=== PATIENT | male | born 1955 | race Caucasian/White ===

== ENCOUNTER → 2017-02-11 | Outpatient (CLI) | payer BC ==
[~2017-02-11] MED LIST: IOPAMIDOL (ISOVUE-300) 100 ML BTL ONE
== END ==
LOC: FIMAGING 10:15
PROVIDERS: ATTEND Internal Medicine
DX: D44.12 Neoplasm of uncertain behavior of left adrenal gland (principal); N20.0 Calculus of kidney
CPT/HCPCS: Q9967

== ENCOUNTER 2017-03-13 23:48 | Emergency (ER) | payer BC ==
[2017-03-14] MEDS ORDERED: NS 1,000 ML IV ONE (00:02)
--- NOTE | 2017-03-14 00:02 | EDPHY ---
H & P Stated Complaint: LLQ abd pain x3 hours HPI/ROS: HPI CHIEF COMPLAINT: Left lower quadrant abdominal pain. HISTORY OF PRESENT ILLNESS: This patient very pleasant 61-year-old male, history of pulmonary embolism on Eliquis he presents emergency room with left lower quadrant abdominal pain. Patient reports to me that this started approximately 3-4 hours ago. He did notice some left lower quadrant abdominal pain earlier in the day. He has had associated nausea. Denies chills fever chest pain or shortness of breath. Pain is located left lower quadrant. Worse over the last 3 hours. No diarrhea. No chest pain no pleuritic pain no shortness of breath. No fever. Past Medical History: Pulmonary embolism on Eliquis Past Surgical History: No abdominal surgery Social History: Denies daily use of drugs alcohol tobacco. Family History: Noncontributory ROS REVIEW OF SYSTEMS: A comprehensive 10 point review of systems is otherwise negative aside from elements mentioned in the history of present illness. Exam Constitutional appears well nontoxic, triage nursing summary reviewed, vital signs reviewed, awake/alert. Eyes normal conjunctivae and sclera, EOMI, PERRLA. HENT normal inspection, atraumatic, moist mucus membranes, no epistaxis, neck supple/ no meningismus, no raccoon eyes. Respiratory clear to auscultation bilaterally, normal breath sounds, no respiratory distress, no wheezing. Cardiovascular rate normal, regular rhythm, no murmur, no edema, distal pulses normal. Gastrointestinal soft, tender palpation left lower quadrant, , no rebound, no guarding, normal bowel sounds, no distension, no pulsatile mass. Genitourinary no CVA tenderness. Musculoskeletal no midline vertebral tenderness, full range of motion, no calf swelling, no tenderness of extremities, no meningismus, good pulses, neurovascularly intact. Skin pink, warm, & dry, no rash, skin atraumatic. Neurologic awake, alert and oriented x 3, AAOx3, moves all 4 extremities equally, motor intact, sensory intact, CN II-XII intact, normal cerebellar, normal vision, normal speech. Psychiatric normal mood/affect. Heme/Lymph/Immune no lymphadenopathy. Differential diagnosis includes but is not limited to and in no particular order : Bowel obstruction, appendicitis, gallbladder disease, diverticulitis, colitis , enteritis, perforated viscus, gastritis, GERD, esophagitis, urinary tract infection, pyelonephritis, kidney stones Medical Decision Making: IV establishment, blood draw, IV fluid bolus, CT scan abdomen pelvis with IV contrast rule out acute diverticulitis. Colitis. Re-evaluation: CT scan of the abdomen pelvis with IV contrast. The results of the study are this shows a left-sided UPJ stone 5 mm. Moderate hydronephrosis. The study was read by Dr. Isidro I viewed the images myself on the PACS system. 0138: Discussed results of CT scan with patient. He understands he has a kidney stone proximal ureter 5 mm. Recommend close follow-up with urology. Urine strainer. [place] for acute pain control. Flomax. Understands drink lots of fluids. Return precautions given he understands return emergency room if develops worsening abdominal pain fever vomiting. Urinary symptoms. Source: Patient - Personal History Current Tetanus/Diphtheria Vaccine: Unsure Current Tetanus Diphtheria and Acellular Pertussis (TDAP): Unsure - Medical/Surgical History Hx Asthma: No Hx Chronic Respiratory Disease: No Hx Diabetes: No Hx Cardiac Disease: No Hx Renal Disease: No Hx Cirrhosis: No Hx Alcoholism: No Hx HIV/AIDS: No Hx Splenectomy or Spleen Trauma: No Other PMH: HTN, NICKI, hx of PE, - Social History Smoking Status: Never smoked Constitutional: Initial Vital Signs Temperature (C) 36.7 C 03/13/17 23:50 Heart Rate 65 03/13/17 23:50 Respiratory Rate 16 03/13/17 23:50 Blood Pressure 155/76 H 03/13/17 23:50 O2 Sat (%) 95 03/13/17 23:50 O2 Delivery Mode Room Air Allergies/Adverse Reactions: Sulfa (Sulfonamide Antibiotics) Allergy (Verified 03/13/17 23:54) Rash Home Medications: Medication Instructions Recorded Ibuprofen [Advil] 200 mg PO PRN PRN 04/04/16 Losartan Potassium [Cozaar] 100 mg PO DAILY 04/04/16 amLODIPine BESYLATE [Norvasc 10 mg 10 mg PO DAILY 04/04/16 (*)] Apixaban [Eliquis] 10 mg PO BID #70 tab 04/08/16 Metoprolol Tartrate 03/13/17 Hydrocodone/APAP 5/325 [[place] 1 - 2 tab PO Q4H PRN #10 tab 03/14/17 5/325] Tamsulosin HCl [Flomax] 0.4 mg PO DAILY #10 cap 03/14/17 Medical Decision Making - Data Points Laboratory Results: Laboratory Results 03/14/17 00:15 03/14/17 00:15 03/14/17 03/14/17 03/14/17 00:49 00:15 00:15 WBC RBC Hgb Hct MCV MCH MCHC RDW Plt Count MPV Neut % (Auto) Lymph % (Auto) [place] % (Auto) Eos % (Auto) Baso % (Auto) Nucleat RBC Rel Count Absolute Neuts (auto) Absolute Lymphs (auto) Absolute Monos (auto) Absolute Eos (auto) Absolute Basos (auto) Absolute Nucleated RBC Immature Gran % Immature Gran # PT 15.9 SEC H SEC (12.0-15.0) INR 1.27 H (0.83-1.16) APTT 29.7 SEC SEC (23.0-38.0) VBG Lactic Acid Sodium 140 mEq/L mEq/L (134-144) Potassium 4.8 mEq/L mEq/L (3.5-5.2) Chloride 103 mEq/L mEq/L (97-110) Carbon Dioxide 25 mEq/l mEq/l (22-31) Anion Gap 12 mEq/L mEq/L (8-16) BUN 25 mg/dL H mg/dL (7-23) Creatinine 1.0 mg/dL mg/dL (0.7-1.3) Estimated GFR > 60 Glucose 107 mg/dL H mg/dL (70-100) Calcium 10.5 mg/dL H mg/dL (8.5-10.4) Total Bilirubin 0.7 mg/dL mg/dL (0.1-1.4) Conjugated Bilirubin 0.2 mg/dL mg/dL (0.0-0.5) Unconjugated Bilirubin 0.5 mg/dL mg/dL (0.0-1.1) AST 31 IU/L IU/L (17-59) ALT 53 IU/L IU/L (21-72) Alkaline Phosphatase 65 IU/L IU/L (38-126) Total Protein 7.1 g/dL g/dL (6.3-8.2) Albumin 4.1 g/dL g/dL (3.5-5.0) Lipase 54 IU/L IU/L (23-300) Urine Color YELLOW Urine Appearance CLEAR Urine pH 6.0 (5.0-7.5) Ur Specific [place] 1.014 (1.002-1.030) Urine Protein NEGATIVE (NEGATIVE) Urine Ketones NEGATIVE (NEGATIVE) Urine Blood 3+ H (NEGATIVE) Urine Nitrate NEGATIVE (NEGATIVE) Urine Bilirubin NEGATIVE (NEGATIVE) Urine Urobilinogen NEGATIVE EU EU (0.2-1.0) Ur Leukocyte Esterase NEGATIVE (NEGATIVE) Urine RBC 50-182 /hpf H /hpf (0-3) Urine WBC 3-5 /hpf H /hpf (0-3) Ur Epithelial Cells Not Reported Urine Bacteria TRACE /hpf H /hpf (NONE SEEN) Hyaline Casts 1-5 /lpf /lpf (0-1) Urine Mucus TRACE /lpf /lpf (NONE-1+) Urine Glucose NEGATIVE (NEGATIVE) 03/14/17 03/14/17 00:15 00:15 WBC 11.10 10^3/uL H 10^3/uL (3.80-9.50) RBC 4.64 10^6/uL 10^6/uL (4.40-6.38) Hgb 15.2 g/dL g/dL (13.7-17.5) Hct 44.1 % % (40.0-51.0) MCV 95.0 fL fL (81.5-99.8) MCH 32.8 pg pg (27.9-34.1) MCHC 34.5 g/dL g/dL (32.4-36.7) RDW 12.9 % % (11.5-15.2) Plt Count 144 10^3/uL L 10^3/uL (150-400) MPV 12.8 fL H fL (8.7-11.7) Neut % (Auto) 80.0 % H % (39.3-74.2) Lymph % (Auto) 12.0 % L % (15.0-45.0) [place] % (Auto) 6.3 % % (4.5-13.0) Eos % (Auto) 0.8 % % (0.6-7.6) Baso % (Auto) 0.4 % % (0.3-1.7) Nucleat RBC Rel Count 0.0 % % (0.0-0.2) Absolute Neuts (auto) 8.89 10^3/uL H 10^3/uL (1.70-6.50) Absolute Lymphs (auto) 1.33 10^3/uL 10^3/uL (1.00-3.00) Absolute Monos (auto) 0.70 10^3/uL 10^3/uL (0.30-0.80) Absolute Eos (auto) 0.09 10^3/uL 10^3/uL (0.03-0.40) Absolute Basos (auto) 0.04 10^3/uL 10^3/uL (0.02-0.10) Absolute Nucleated RBC 0.00 10^3/uL 10^3/uL (0-0.01) Immature Gran % 0.5 % % (0.0-1.1) Immature Gran # 0.05 10^3/uL 10^3/uL (0.00-0.10) PT INR APTT VBG Lactic Acid 1.3 mmol/L mmol/L (0.7-2.1) Sodium Potassium Chloride Carbon Dioxide Anion Gap BUN Creatinine Estimated GFR Glucose Calcium Total Bilirubin Conjugated Bilirubin Unconjugated Bilirubin AST ALT Alkaline Phosphatase Total Protein Albumin Lipase Urine Color Urine Appearance Urine pH Ur Specific [place] Urine Protein Urine Ketones Urine Blood Urine Nitrate Urine Bilirubin Urine Urobilinogen Ur Leukocyte Esterase Urine RBC Urine WBC Ur Epithelial Cells Urine Bacteria Hyaline Casts Urine Mucus Urine Glucose Medications Given: Discontinued Medications Sodium Chloride (Ns) 1,000 mls @ 0 mls/hr IV EDNOW ONE; Wide Open PRN Reason: Protocol Stop: 03/14/17 00:03 Last Admin: 03/14/17 00:15 Dose: 1,000 mls Departure - Departure Disposition: Home, Routine, Self-Care Clinical Impression: Kidney stone on left side Condition: Good Instructions: Kidney Stones (ED), Renal Colic (ED), How to Strain Your Urine ( ED), Flank Pain (ED) Additional Instructions: 1. Drink lots of fluids stay well-hydrated. 2. [place] for severe pain. 3. Flomax to help dilate ear ureter and get the stone out. 4. Please follow up with Urology call their for an appointment. 5. Return emergency room if he develops worsening pain questions or concerns includes worsening pain vomiting or fever. Referrals: Edson Pinon MD [Primary Care Provider] - As per Instructions Eris Garcia MD [Medical Doctor] - As per Instructions Prescriptions: Hydrocodone/APAP 5/325 [[place] 5/325] 1 - 2 tab PO Q4H PRN #10 tab PRN Reason: Pain, Moderate Tamsulosin HCl [Flomax] 0.4 mg PO DAILY #10 cap
[2017-03-14] MEDS ORDERED: IOPAMIDOL (ISOVUE-300) 100 ML BTL ONE (00:18)
[2017-03-14 00:33] LABS: INR 1.27 (0.83-1.16); PROTIME(PATIENT) 15.9 SEC (12.0-15.0)
[2017-03-14 00:34] LABS: APTT 29.7 SEC (23.0-38.0)
[2017-03-14 00:42] LABS: ALANINE AMINOTRANSFERASE 53 IU/L (21-72); ALBUMIN 4.1 g/dL (3.5-5.0); ALKALINE PHOSPHATASE 65 IU/L (38-126); ANION GAP 12 mEq/L (8-16); ASPARTATE AMINOTRANSFERASE 31 IU/L (17-59); BILIRUBIN,TOTAL 0.7 mg/dL (0.1-1.4); BILIRUBIN-CONJUGATED 0.2 mg/dL (0.0-0.5); BILIRUBIN-UNCONJUGATED 0.5 mg/dL (0.0-1.1); CALCIUM 10.5 mg/dL (8.5-10.4); CARBON DIOXIDE 25 mEq/l (22-31); CHLORIDE 103 mEq/L (97-110); GLOMERULAR FILTRATION RATE > 60; GLUCOSE 107 mg/dL (70-100); POTASSIUM 4.8 mEq/L (3.5-5.2); SODIUM 140 mEq/L (134-144); TOTAL PROTEIN 7.1 g/dL (6.3-8.2)
[2017-03-14 00:59] LABS: % IMMATURE GRANULYOCYTES 0.5 % (0.0-1.1); ABSOLUTE IMMATURE GRANULOCYTES 0.05 10^3/uL (0.00-0.10); ADD DIFF? NO; ADD MORPH? NO; ADD SCAN? NO; ATYPICAL LYMPHOCYTE FLAG 0 (0-99); FRAGMENT RBC FLAG 0 (0-99); HEMATOCRIT 44.1 % (40.0-51.0); HEMOGLOBIN 15.2 g/dL (13.7-17.5); LEFT SHIFT FLG 0 (0-99); LIPEMIA HEMOLYSIS FLAG 90 (0-99); MEAN CELL HEMOGLOBIN 32.8 pg (27.9-34.1); MEAN CELL HEMOGLOBIN CONCENTR. 34.5 g/dL (32.4-36.7); MEAN PLATELET VOLUME 12.8 fL (8.7-11.7); PLATELET CLUMPS FLAG 20 (0-99); PLATELET COUNT 144 10^3/uL (150-400); RED BLOOD CELL COUNT 4.64 10^6/uL (4.40-6.38); RED CELL DISTRIBUTION WIDTH 12.9 % (11.5-15.2)
[2017-03-14 01:02] LABS: COLOR YELLOW; LEUKOCYTE ESTERASE,URINE NEGATIVE (NEGATIVE); NITRITE,URINE NEGATIVE (NEGATIVE)
[2017-03-14 01:06] VITALS: BP 127/68; PULSE 61; RESP 14; TEMP 97.9; O2SAT 94
[2017-03-14 01:16] LABS: BACTERIA TRACE /hpf (NONE SEEN); MUCUS TRACE /lpf (NONE-1+); RBC,URINE 50-182 /hpf (0-3)
[2017-03-14] MEDS ORDERED: HYDROCOD/APAP 5/325 PREPACK#6 BTL TAKEHOME ONE ×2 (01:40)
== END 2017-03-14 01:54 | disposition home or self-care (01) ==
DX: N20.0 Calculus of kidney (principal); E86.9 Volume depletion, unspecified; I10 Essential (primary) hypertension; Z79.01 Long term (current) use of anticoagulants
CPT/HCPCS: Q9967

== ENCOUNTER 2017-03-19 14:07 | Day surgery (SDC) | payer BC ==
[~2017-03-19 14:07] MED LIST changes: -IOPAMIDOL (ISOVUE-300) 100 ML BTL ONE; +ceFAZolin 2 GM/SWFI 2 GM/20 ML SYR IVP ONE
[2017-03-19] MEDS ORDERED: LR 1,000 ML IV ONE (14:33)
[2017-03-19] MEDS ORDERED: LIDOCAINE 1% 2 ML INJ ID PRN (14:33)
[2017-03-19 14:52] VITALS: PULSE 63
[2017-03-19] MEDS ORDERED: ceFAZolin 2 GM/SWFI 20 ML SYR IVP ONE (14:53)
[2017-03-19] MEDS ORDERED: SCOPOLAMINE HYDROBROMIDE 1 MG/3 DAYS PATCH TD ONE (15:16)
[2017-03-19] MEDS ORDERED: MIDAZOLAM 2 MG/2 ML VIAL IVP ONE (15:19)
--- NOTE | 2017-03-19 15:26 | PDANEPAE ---
ANE History of Present Illness 61 year old with kidney stone on left ANE Past Medical History - Cardiovascular History Hx Hypertension: Yes Hx Arrhythmias: Yes Hx Chest Pain: No Hx Coronary Artery / Peripheral Vascular Disease: No Hx CHF / Valvular Disease: No Hx Palpitations: No Cardiovascular History Comment: occ afib - Pulmonary History Hx COPD: No Hx Asthma/Reactive Airway Disease: No Hx Recent Upper Respiratory Infection: No Hx Oxygen in Use at Home: No Hx Sleep Apnea: Yes Sleep Apnea Screening Result - Last Documented: Positive Pulmonary History Comment: PE a year ago- on eliquis. graham positive uses cpap- instructed pt to bring to hospital. bronchitis after long flight a year go - Neurologic History Hx Cerebrovascular Accident: No Hx Seizures: Yes Hx Dementia: No Neurologic History Comment: poss seizure at a doctors office when they were drawing blood - Endocrine History Hx Diabetes: No - Renal History Hx Renal Disorders: Yes Renal History Comment: current kidney stone - Liver History Hx Hepatic Disorders: No - Neurological & Psychiatric Hx Hx Neurological and Psychiatric Disorders: No - Cancer History Hx Cancer: No - Congenital Disorder History Hx Congenital Disorders: No - GI History Hx Gastrointestinal Disorders: No - Other Health History Other Health History: wears glasses - Chronic Pain History Chronic Pain: No - Surgical History Prior Surgeries: oral surgery as child. colonoscopy ANE Review of Systems Review of Systems: - Exercise capacity METS (RN): 4 METS ANE Patient History - Allergies Allergies/Adverse Reactions: Sulfa (Sulfonamide Antibiotics) Allergy (Verified 03/18/17 16:27) Unknown - Home Medications Home Medications: Losartan Potassium [Cozaar] 04/04/16 [Last Taken 03/19/17 08:30] amLODIPine BESYLATE [Norvasc 10 mg (*)] 04/04/16 [Last Taken 03/18/17] Metoprolol Tartrate 03/13/17 [Last Taken 03/19/17 08:30] Apixaban [Eliquis] 03/18/17 [Last Taken 03/18/17] Hydrocodone/APAP 5/325 [[place] 5/325] 03/18/17 [Last Taken 03/18/17] Tamsulosin HCl [Flomax] 03/18/17 [Last Taken 03/18/17] - NPO status NPO Since - Liquids (Date): 03/19/17 NPO Since - Liquids (Time): 12:50 NPO Since - Solids (Date): 03/18/17 NPO Since - Solids (Time): 23:00 - Anes Hx Anes Hx: no prior problems - Smoking Hx Smoking Status: Never smoked - Family Anes Hx Family Hx Anesthesia Complications: none ANE Labs/Vital Signs - Vital Signs Blood Pressure: 136/83 Heart Rate: 63 Respiratory Rate: 16 O2 Sat (%): 96 Height: 187.96 cm Weight: 104.326 kg ANE Physical Exam - Airway Neck exam: FROM Mallampati Score: Class 1 Mouth exam: normal dental/mouth exam - Pulmonary Pulmonary: no respiratory distress - Cardiovascular Cardiovascular: regular rate and rhythym - ASA Status ASA Status: II ANE Anesthesia Plan Anesthesia Plan: GA w LMA
--- NOTE | 2017-03-19 15:28 | PDHPUP ---
History & Physical Update H&P update statement: This history and physical update is based on an assessment of the patient which was completed after admission or registration (within 24 hours), but prior to the surgery/procedure. H&P update: H&P reviewed & patient examined, no change in patient's condition since H&P completed
[2017-03-19] MEDS ORDERED: IOPAMIDOL (ISOVUE-M 300) 15 ML VIAL ONE ×2 (15:29→16:10)
[2017-03-19] MEDS ORDERED: fentaNYL 100 MCG/2 ML INJ ONE ×2 (15:43→16:29)
[2017-03-19] MEDS ORDERED: PROPOFOL 200 MG/20 ML VIAL ONE ×2 (15:43→15:52)
[2017-03-19] MEDS ORDERED: LIDOCAINE 2% JELLY 20 ML (UROJECT) ONE ×2 (15:49→20:26)
[2017-03-19] MEDS ORDERED: OPIUM/BELLADONNA ALKALO SUPP PR ONE (16:00)
[2017-03-19] MEDS ORDERED: fentaNYL 100 MCG/2 ML INJ IVP PRN (16:58)
[2017-03-19] MEDS ORDERED: NALOXONE HCL 0.4 MG/ML INJ IVP PRN (16:58)
[2017-03-19] MEDS ORDERED: PROMETHAZINE HCL 25 MG/ML INJ IVP PRN (16:58)
[2017-03-19] MEDS ORDERED: ONDANSETRON 4 MG/2 ML VIAL IVP PRN (16:58)
--- NOTE | 2017-03-19 16:59 | POSTANESTH ---
Post Anesthetic Evaluation Cardiovascular Status: Normal, Stable Respiratory Status: Normal, Stable Level of Consciousness/Mental Status: Can Participate in Eval, Alert and Oriented Pain Control: Adequate, Prn Tx Ordered Nausea/Vomiting Control: Adequate, Prn Tx Ordered Complications Possibly Related to Anesthesia: None Noted
--- NOTE | 2017-03-19 17:18 | POSTOPPROG ---
Post Op Note Date of Operation: 03/19/17 Surgeon: Day Steve Home Delivery Driver: n/a Anesthesia: LMA Pre-op Diagnosis: left ureteral stone Post-op Diagnosis: same Indication: symptomatic left ureteral stone Procedure: cystoscopy, left diagnostic ureteroscopy, left retrograde pyelogram, stent Findings: edema where stone likely was, above pelvic brim, but no stone seen Inf/Abcess present in the surg proc area at time of surgery?: No Depth: Organ Space EBL: Minimal Complications: None, patient tolerated procedure well
[2017-03-19] MEDS ORDERED: OXYCODONE/APAP 5/325 TAB PO PRN (18:08)
[2017-03-19] MEDS ORDERED: PHENAZOPYRIDINE HCL 200 MG TAB PO SCH (19:00)
[2017-03-19] MEDS ORDERED: APIXABAN 5 MG TAB PO SCH (21:00)
[2017-03-19] MEDS ORDERED: TAMSULOSIN HCL 0.4 MG CAP PO SCH (21:00)
[2017-03-19 22:38] VITALS: BP 157/91; O2SAT 94
[2017-03-19 23:05] VITALS: RESP 16; TEMP 98.1
--- NOTE | 2017-03-20 03:35 | GOP ---
[f rep st] OPERATIVE REPORT DATE OF OPERATION: SURGEON: Day Steve MD ANESTHESIA: LMA. PREOPERATIVE DIAGNOSIS: Left ureteral stone. POSTOPERATIVE DIAGNOSIS: Left ureteral stone. PROCEDURE PERFORMED: Cystoscopy, left diagnostic ureteroscopy, left retrograde pyelogram, and left ureteral stent placement 6-Armenian x 28 cm. FINDINGS: On retrograde pyelogram there was a questionable area of filling defect above the pelvic brim, but no specific filling defect identified. A diagnostic ureteroscopy with a rigid scope was able to navigate past the area of edema and narrowing just above the pelvic brim. This area was erythematous and inflamed as if there was a stone there at one time; however, there was no stone seen. I was able to traverse the rigid scope nearly up to the kidney, and again saw no stone. I was unable to pass a 12-Armenian ureteral access sheath past the area of edema. At this point I decided to just place a stent. 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 ESTIMATED BLOOD LOSS: 10 mL. INDICATIONS: The patient presented to my office with a CT scan and symptoms of an obstructing left ureteral stone. He is going away for a on and we discussed trial of passage versus treatment of the stone, and he did not want to be in the middle of [place] at this and have suddenly problems with the stone passing, so he elected to proceed with intervention. In my office, and preoperatively, discussed that risks of this procedure include bleeding which he is at more risk of given he is on Eliquis for a history of PE , risks of pain, infection, risks of injury to the ureter, bladder, urethra. Chance that I am unable to get my instruments up to the level of the stone, and also chance that I would not be able to place a stent due to ureteral narrowing were all discussed, and he agreed to proceed. DESCRIPTION OF PROCEDURE: The patient was seen in the preoperative holding area , where again the rationale, risks, and benefits as outlined above were discussed in detail. He had signed consent in my office, and we also confirmed consent in preop. He was then taken back to the cystoscopy suite, placed on a cystoscopy table in a supine position. General anesthesia was induced without complication. A time-out was performed, and SCIP core measures were satisfied, including placement of a Karan Hugger, SCDs, and administration of 2 Ancef antibiotics. He was brought to the end of the table, placed in a dorsal lithotomy position, and his genitalia draped and prepped in the standard surgical fashion with Betadine. A rigid cystoscope easily cannulated his urethral meatus. I did meet a wide neck stricture just right before the membranous urethra in the proximal bulbar urethra, but I was able to traverse my scope safely across this stricture. Then , once in the bladder I did hines cystoscopy. He had no lesions, cellules, trabeculations. The right and left ureteral orifices were in their expected anatomical position. I focused attention on the left ureteral orifice where I advanced a 5-Armenian open-ended catheter to the level of the left ureteral orifice, and performed a retrograde pyelogram. I noted on the pyelogram above the pelvic brim there was an area of abnormal filling, but it was not specifically like there was a stone a stone or a specific filling defect. The rest of the entire ureter above this and below this area was delicate, smooth, without any filling defects, and the renal pelvis also looked very normal and delicate. At this point, I thought that my stone likely was in that area that saw was slightly abnormal on the retrograde, and I felt it was low enough that I would do a rigid ureteroscopy. I put up two 0.035 glidewires with fluoroscopic guidance, and then I placed a 12-Armenian Smiley catheter for continuous drainage of the bladder, and then I advanced a rigid ureteroscope through the urethra, into the bladder, and noted that the left ureteral orifice was narrow, so then I back loaded my rigid ureteroscope with 1 of the wires, and was able to safely get into the left ureteral orifice, and travel up into the ureter. I encountered an areas with inflammed ureter an area, which corresponded to that area on the retrograde that was slightly abnormal. I removed 1 of my wires to allow easier passage and give me more space, but once I got to this very narrow area I again loaded 1 of those wires into the ureteroscope, again I still had 2 up, and I was able to traverse safely past the area of narrowing, and traverse all the way up nearly to the kidney with my rigid scope. I did not note a stone at any point. So, then I carefully withdrew my scope, again examining the wall of the ureter, examining the ureter carefully, and came back down to that area that was edematous, and it was clear that this area at 1 time had a stone. The ureteral mucosa was edematous, inflamed, and so I continued to remove my scoped, and I thought I would place ureteral access sheath and see if the stone had traveled up into the kidney. So , I removed the rigid ureteroscope, both my wires were still in place, and I attempted to advance a 12/14-Armenian ureteral access sheath. I met the area of resistance that I have been talking about that was inflammed with the access sheath, and I was unable to safely traverse it. So, then I decided to try and dilate with the inner part of my access sheath which was a 12-Armenian. I advanced this over the wire, and with fluoroscopic guidance again met that same area of resistance above the pelvic brim. At this point, I did not want to keep putting additional force to try and advance the access sheath and I felt, at this point, I would just place a stent which would then allow passive dilation of this ureter and we could go back in a week or so relook up into the kidney for that left stone, which I do feel has not passed and is up in probably the left kidney, or above where I was able to advance my rigid ureteroscope. Also I may do some imaging to see if a stone exists as well. So , at this point, I had 2 wires up, and I back loaded 1 of my wires into my cystoscope, advanced the cystoscope to the level of the left ureteral orifice, removed the 2nd wire, and then placed a 6-Armenian x 28 cm double J stent with fluoroscopic guidance, there was a nice curl in the kidney and on direct cystoscopic visualization there was a very nice curl in the bladder. The bladder was emptied. There were some small clots that passed and again no stone in the bladder. At this point, I considered the procedure complete. I put lidocaine jelly per urethra and then a belladonna opium suppository per rectum for comfort. He was awoken from anesthesia and transferred to the PACU in good condition. COMPLICATIONS: None. The patient tolerated the procedure well. /[id number]/MODL MTDD
[2017-03-20] MEDS ORDERED: LOSARTAN POTASSIUM 50 MG TAB PO SCH (09:00)
[2017-03-20] MEDS ORDERED: METOPROLOL SUCCINATE XR 50 MG TAB PO SCH (09:00)
== END 2017-03-19 21:20 | disposition home or self-care (01) ==
LOC: FSGY 14:07
PROVIDERS: ATTEND Urology
PROC: 0T778DZ Dilation of Left Ureter with Intraluminal Device, Via Natural or Artificial Opening Endoscopic (ICD-10-PCS; principal; 2017-03-19 15:30)
PROC: 0TJ98ZZ Inspection of Ureter, Via Natural or Artificial Opening Endoscopic (ICD-10-PCS; principal; 2017-03-19 15:30)
DX: N20.1 Calculus of ureter (principal); I48.91 Unspecified atrial fibrillation; I10 Essential (primary) hypertension; M10.9 Gout, unspecified; Z79.01 Long term (current) use of anticoagulants; Z86.711 Personal history of pulmonary embolism; Z88.2 Allergy status to sulfonamides
CPT/HCPCS: 52332; 52351; 76001; C1758; C1769; C1894; C2625; J0690; J2250; J2704; J3010; Q9967

== ENCOUNTER → 2017-03-26 | Outpatient (CLI) | payer BC | LOC: FIMAGING 12:29 | PROVIDERS: ATTEND Urology | DX: N20.1 Calculus of ureter (principal) ==

== ENCOUNTER → 2017-04-03 | Outpatient (CLI) | payer BC | LOC: BMCIMAGING 15:13 | PROVIDERS: ATTEND Urology | DX: N20.1 Calculus of ureter (principal) ==

== ENCOUNTER 2017-04-05 06:04 | Day surgery (SDC) | payer BC ==
[2017-04-05] MEDS ORDERED: IOPAMIDOL (ISOVUE-M 300) 15 ML VIAL ONE (06:37)
[2017-04-05] MEDS ORDERED: OPIUM/BELLADONNA ALKALO SUPP PR ONE ×2 (06:43→09:32)
[2017-04-05] MEDS ORDERED: ceFAZolin 2 GM/SWFI 2 GM/20 ML SYR IVP ONE (06:43)
[2017-04-05] MEDS ORDERED: LR 1,000 ML IV ONE (06:44)
[2017-04-05] MEDS ORDERED: LIDOCAINE 1% 2 ML INJ ID PRN (06:44)
[2017-04-05] MEDS ORDERED: MIDAZOLAM 2 MG/2 ML VIAL ONE (07:11)
[2017-04-05] MEDS ORDERED: MIDAZOLAM 2 MG/2 ML VIAL IVP ONE (07:14)
--- NOTE | 2017-04-05 07:16 | PDANEPAE ---
ANE History of Present Illness 61 yo with kidney stone ANE Past Medical History - Cardiovascular History Hx Hypertension: Yes Hx Arrhythmias: Yes Hx Chest Pain: No Hx Coronary Artery / Peripheral Vascular Disease: No Hx CHF / Valvular Disease: No Hx Palpitations: No Cardiovascular History Comment: occ afib - Pulmonary History Hx COPD: No Hx Asthma/Reactive Airway Disease: No Hx Recent Upper Respiratory Infection: No Hx Oxygen in Use at Home: No Hx Sleep Apnea: No Sleep Apnea Screening Result - Last Documented: Positive Pulmonary History Comment: PE a year ago- on eliquis. graham positive uses cpap- instructed pt to bring to hospital. bronchitis after long flight a year go - Neurologic History Hx Cerebrovascular Accident: No Hx Seizures: Yes Hx Dementia: No Neurologic History Comment: poss seizure at a doctors office when they were drawing blood - Endocrine History Hx Diabetes: No - Renal History Hx Renal Disorders: Yes Renal History Comment: current kidney stone - Liver History Hx Hepatic Disorders: No - Neurological & Psychiatric Hx Hx Neurological and Psychiatric Disorders: No - Cancer History Hx Cancer: No - Congenital Disorder History Hx Congenital Disorders: No - GI History Hx Gastrointestinal Disorders: No - Other Health History Other Health History: wears glasses - Chronic Pain History Chronic Pain: No - Surgical History Prior Surgeries: oral surgery as child. colonoscopy ANE Review of Systems Review of systems is: negative Review of Systems: - Exercise capacity METS (RN): 5 METS ANE Patient History - Allergies Allergies/Adverse Reactions: Sulfa (Sulfonamide Antibiotics) Allergy (Verified 03/18/17 16:27) Unknown - Home Medications Home Medications: amLODIPine BESYLATE [Norvasc 10 mg (*)] 10 mg PO DAILY 04/04/16 [Last Taken 02/10] Hydrocodone/APAP 5/325 [[place] 5/325] 1 tab PO Q4-6PRN PRN 03/18/17 [Last Taken 03/29/17] Tamsulosin HCl [Flomax] 0.4 mg PO BID 03/18/17 [Last Taken 04/05/17] Apixaban [Eliquis] 5 mg PO BID 03/19/17 [Last Taken 04/05/17] Losartan Potassium [Cozaar] 100 mg PO DAILY 03/19/17 [Last Taken 04/05/17] Metoprolol Succinate Xr [Toprol Xl 50 mg (*)] 50 mg PO DAILY 03/19/17 [Last Taken 04/05/17] oxyCODONE/APAP 5/325 [Percocet 5/325 (*)] 1 - 2 tab PO Q4H PRN 03/19/17 [Last Taken 03/29/17] - NPO status NPO Status: no food or drink >8 hours NPO Since - Liquids (Date): 04/05/17 NPO Since - Liquids (Time): 05:00 NPO Since - Solids (Date): 04/04/17 NPO Since - Solids (Time): 19:30 - Smoking Hx Smoking Status: Never smoked - Family Anes Hx Family Hx Anesthesia Complications: none ANE Labs/Vital Signs - Vital Signs Blood Pressure: 113/65 Heart Rate: 60 Respiratory Rate: 16 O2 Sat (%): 95 Height: 187.96 cm Weight: 103.419 kg ANE Physical Exam - Airway Neck exam: FROM Mallampati Score: Class 1 Mouth exam: normal dental/mouth exam - Pulmonary Pulmonary: no respiratory distress, clear to auscultation - Cardiovascular Cardiovascular: regular rate and rhythym - ASA Status ASA Status: II ANE Anesthesia Plan Anesthesia Plan: GA w LMA
[2017-04-05] MEDS ORDERED: fentaNYL 100 MCG/2 ML INJ ONE ×2 (07:24→08:34)
[2017-04-05] MEDS ORDERED: PROPOFOL 200 MG/20 ML VIAL ONE (07:25)
[2017-04-05] MEDS ORDERED: LIDOCAINE 2% JELLY 20 ML (UROJECT) ONE (07:59)
--- NOTE | 2017-04-05 09:07 | POSTOPPROG ---
Post Op Note Date of Operation: 04/05/17 Surgeon: Day Steve Roof Mechanic: N/A Anesthesiologist: Dr. Streeter Anesthesia: GET(General Endotracheal) Pre-op Diagnosis: Left ureteral stone Post-op Diagnosis: same Indication: left ureteral stone Procedure: cystoscopy, left ureteroscopy, laser lithotripsy, stent, retrograde pyelogr Findings: left ureteral stone Inf/Abcess present in the surg proc area at time of surgery?: No Depth: Organ Space (bladder/left collecting system) EBL: Minimal Complications: None, patient tolerated procedure well Drains: Other (Smiley catheter) Specimen(s): Stone fragments
[2017-04-05 09:19] VITALS: TEMP 97.5
[2017-04-05 10:37] VITALS: BP 109/64; RESP 20
[2017-04-05 11:24] VITALS: PULSE 63; O2SAT 94
--- NOTE | 2017-04-05 18:53 | GOP ---
[f rep st] OPERATIVE REPORT DATE OF OPERATION: 04/05/2017 SURGEON: Day Steve MD ANESTHESIA: General. ANESTHESIOLOGIST: Tr Streeter MD. PREOPERATIVE DIAGNOSIS: Left ureteral stone. POSTOPERATIVE DIAGNOSIS: Left ureteral stone. PROCEDURE PERFORMED: Cystoscopy, left ureteroscopy, laser lithotripsy, basket extraction of stone, s tent placement 6-Italian x 28 cm, intraoperative fluoroscopy, and retrograde pyelogram. FINDINGS: INDICATIONS: The patient is a 61-year-old male with a left obstructing ureteral stone. He had a marya nt placement 2 weeks ago for the stone, and he presents today for treatment of that stone. The ratio nale, risks, and benefits including bleeding, infection, pain, need for a Smiley catheter after the pr ocedure, injury to surrounding tissues including the ureter, bladder, and urethra were discussed in d etail with the patient, and the patient agreed to proceed. DESCRIPTION OF PROCEDURE: The patient was taken back to the cystoscopy suite, placed on the cystosco py table in a supine position. General anesthesia induced without complication. Time-out performed, and core measures were satisfied including placement of a Karan-Hugger, SCDs, and verification that h e had received 2 g Ancef antibiotics. He was brought to the end of the table, placed in the dorsal l ithotomy position. All pressure points padded. Genitalia draped and prepped in standard surgical fa shion with Betadine. A rigid cystoscope easily cannulated his urethral meatus. He did have a wide n ecked stricture though right proximal to the veru and then proximal to the membranous urethra. This stricture was seen at the last time we scoped, and I was able to navigate the scope past the strictur e and then into the bladder. Of note, he has a large prostate, coapting lobes obstructing. Once in the bladder, I advanced a grasper through the cystoscope to the level of the existing left ureteral s tent and pulled the stent distal end out to the urethral meatus. Then at the urethral meatus, paige ed a 0.035 Glidewire with fluoroscopic guidance into the left collecting system. I removed the exist ing stent and then secured this safety wire with a hemostat to the drape. Then I advanced the cystos cope back into the bladder and advanced another 0.035 Glidewire which would be the working wire under fluoroscopic guidance for this placement as well. Once the wire was in place, removed the cystoscop e and then advanced a 12-14 Italian ureteral access sheath 55 cm over the wire with fluoroscopic franny nce up to the level of the stone. I should note that I did a fluoroscopy prior to doing all of this, and I noted the stone right at the top of L3. This is where it was on the previous KUB a couple of days ago. I was able to advance the sheath right to the level of the stone and then advanced a flexi ble ureteroscope to the level of the stone, encountered the stone. It was mildly impacted, and I adv anced a 270 micron laser to the level of the stone and then dusted the stone into very small sand-lik e fragments. There were 3 or so fragments that were slightly larger, and I decided to then remove th e laser and then advance a zero tip nitinol basket to the level of these fragments and was able to ba sket extract these fragments and would send those to Pathology for stone analysis. I then wanted to make sure that no stone fragments had flown up into higher levels of the left collecting system, so I removed the ureteroscope, replaced our inner sheath for the ureteral access sheath, and then placed a wire with fluoroscopic guidance. Then over the wire, I advanced this access sheath up more proxima l to the level of the proximal ureter. I then advanced the ureteroscope through this again, and did hines nephroscopy looking at all of the calices of the kidney. I also did a retrograde pyelogram to ma ke sure I did look into all of the calices when I was looking around with my ureteroscope, and I did use fluoroscopy to help identify this. There were no other stone fragments in the left collecting sy stem. I then removed the ureteroscope along with the sheath together carefully looking at the ureter as I went more distally. I did notice a couple other smaller stone fragments. I decided to basket extract those and send those along with our other stone fragments. Once all of the stones were out o f the ureter, I removed that ureteroscope en bloc with the sheath leaving our safety wire up. The ur eter did look very edematous at the level where that stone had been but, otherwise, looks fine with n o other problems. The safety wire was still up in the collecting system, and then I backloaded the c ystoscope with that wire and then was able to place a 6-Italian x 26 cm double-J stent with fluoroscop ic guidance and with direct visualization in my scope. There was a nice curl in the renal pelvis and a nice curl in the bladder. At this point, I removed the cystoscope and then placed an 18-Italian Fo shreya catheter. He had gone into retention on prior surgeries, so we elected just to leave that in for now and will take it out on Saturday. Of note, there were no complications with the surgery. He did well, and I did do all of my own fluor oscopic interpretation and fluoroscopic imaging. There was no a systems technician who was doing this fo r me. COMPLICATIONS: None. The patient tolerated the procedure well. /[id number]/MODL
[2017-04-09 17:54] LABS: NIDUS NOT OBSERVED; SOURCE OF STONE URETERAL STONE
== END 2017-04-05 11:15 | disposition home or self-care (01) ==
LOC: FSGY 06:04
PROVIDERS: ATTEND Urology
PROC: BT1F1ZZ Fluoroscopy of Left Kidney, Ureter and Bladder using Low Osmolar Contrast (ICD-10-PCS; principal; 2017-04-05 07:15)
PROC: 0T9780Z Drainage of Left Ureter with Drainage Device, Via Natural or Artificial Opening Endoscopic (ICD-10-PCS; principal; 2017-04-05 07:15)
PROC: 0TC78ZZ Extirpation of Matter from Left Ureter, Via Natural or Artificial Opening Endoscopic (ICD-10-PCS; principal; 2017-04-05 07:15)
DX: N20.1 Calculus of ureter (principal); I48.0 Paroxysmal atrial fibrillation; I10 Essential (primary) hypertension; M10.9 Gout, unspecified; G47.33 Obstructive sleep apnea (adult) (pediatric); Z86.711 Personal history of pulmonary embolism
CPT/HCPCS: 52356; 76001; C1758; C1769; C1894; 82365-90; C2625; J0690; J2250; J2704; J3010; Q9967

== ENCOUNTER → 2017-06-03 | Outpatient (CLI) | payer BC | LOC: BMCIMAGING 15:05 | PROVIDERS: ATTEND Urology | DX: Z87.442 Personal history of urinary calculi (principal) ==

== ENCOUNTER 2018-06-08 09:43 | Emergency (ER) | payer BC, OTHER ==
--- NOTE | 2018-06-08 10:06 | EDPHY ---
H & P Stated Complaint: Painless flashes light n floater R peripheral vision since last night Time Seen by Provider: 06/08/18 09:56 - Medical/Surgical History Hx Asthma: No Hx Chronic Respiratory Disease: No Hx Diabetes: No Hx Cardiac Disease: Yes Hx Renal Disease: No Hx Cirrhosis: No Hx Alcoholism: No Hx HIV/AIDS: No Hx Splenectomy or Spleen Trauma: No Other PMH: HTN, NICKI, hx of PE, AFIB - Social History Smoking Status: Never smoked Constitutional: Initial Vital Signs Temperature (C) 36.5 C 06/08/18 09:48 Heart Rate 67 06/08/18 09:48 Respiratory Rate 16 06/08/18 09:48 Blood Pressure 151/90 H 06/08/18 09:48 O2 Sat (%) 97 06/08/18 09:48 O2 Delivery Mode Room Air Allergies/Adverse Reactions: Sulfa (Sulfonamide Antibiotics) Allergy (Verified 03/18/17 16:27) Unknown Home Medications: Medication Instructions Recorded amLODIPine BESYLATE [Norvasc 10 mg 10 mg PO DAILY 04/04/16 (*)] Apixaban [Eliquis] 5 mg PO BID 03/19/17 Losartan Potassium [Cozaar] 100 mg PO DAILY 03/19/17 Metoprolol Succinate Xr [Toprol Xl 50 mg PO DAILY 03/19/17 50 mg (*)] Sennosides/Docusate Sodium [Gnp 1 each PO BID #30 tablet 04/05/17 Stool Softener-Stim Lax Tb] Tamsulosin HCl [Flomax 0.4 MG (*)] 0.4 mg PO BID 30 Days #30 cap 04/05/17 Medical Decision Making ED Course/Re-evaluation: CHIEF COMPLAINT: Flashing in right eye, atrial fibrillation HISTORY OF PRESENT ILLNESS: The patient is an anticoagulated (Eliquis) 62 y/o male with a history of atrial fibrillation and PEs complaining of flashing in the peripheral vision of his right eye. He reports that he feels like he has been in and out of atrial fibrillation for the past 24 hours. This morning, he noticed flashing in the peripheral vision of his right eye. He reports two episodes lasting several minutes each of the flashing. Aside from a rather large floater, he denies any other unusual vision issues. He denies any other associated symptoms. REVIEW OF SYSTEMS: A 10 system review of systems was performed and is negative with the exception of the elements mentioned in the history of present illness. PHYSICAL EXAM: HR, BP, O2 Sat, RR. Temp noted General Appearance: Alert, well hydrated, appropriate, and non-toxic appearing. Head: Atraumatic without scalp tenderness or obvious injury Eyes: Pupils equal, round, reactive to light and accommodation, EOMI, no trauma , no injection. Ears: Clear bilaterally, no perforation, normal landmarks Nose: Atraumatic, no rhinorrhea, clear. Throat: There is no erythema or exudates, no lesions, normal tonsils, mucus membranes moist. Neck: Supple, 2+ carotid upstroke, nontender, no lymphadenopathy. Respiratory: No retractions, no distress, no wheezes, and no accessory muscle use. Lungs are clear to auscultation bilaterally. Cardiovascular: Regular rate and rhythm, no murmurs, rubs, or gallops. Good capillary refill all extremities. Gastrointestinal: Abdomen is soft, nontender, non-distended, no masses, no rebound, no guarding, no peritoneal signs. Musculoskeletal: Normal active ROM of all extremities, atraumatic. Neurological: Alert, appropriate, and interactive. The patient has normal DTRs and non-focal cranial nerves, motor, sensory, and cerebellar exam. Skin: No rashes, good turgor, no nodules on palpation. Past medical history: Atrial fibrillation, PEs, hypertension Past surgical history: Denies Family history: Non-contributory Social history: at bedside, lives in [place], retired DIAGNOSTICS/PROCEDURES/CRITICAL CARE TIME: Study: MRI of the: Brain Indication: Visual disturbances Results: MRI scan of the body parts was obtained. The results of the study are normal. The study was read by the radiologist, Dr. Zavala. Study: CT of the head and neck Indication: Visual disturbances Results: CT scan of the body parts was obtained. The results of the study are normal. The study was read by the radiologist, Dr. Zavala. DIFFERENTIAL DIAGNOSIS: The differential diagnosis for this patient's visual disturbance included but was not limited to ophthalmic artery occlusion, vitreous detachment, retinal detachment, and ocular migraine. MEDICAL DECISION MAKING: The patient presents with intermittent disturbances in the peripheral vision of his right eye. He also reports being in and out of atrial fibrillation for the past 24 hours. He reports he has a large floater in the right eye but otherwise normal vision. He denies any other associated symptoms. He is currently in clear sinus rhythm. Due to his increased stroke risk, he will need to have his ophthalmic artery evaluated for clot. Plan for MRI of the brain without contrast and CTA of head and neck, and iSTAT. 11:45 AM - [facility] and informed him of the results of his workup. He has not had a recurrence of visual disturbances. MRI and CTA were both normal. I feel he is safe to follow up out patient with ophthalmology. He agrees to this course of action. Follow up instructions and return precautions given. - Data Points Laboratory Results: 06/08/18 10:13 POC Hgb 16.0 gm/dL gm/dL (13.7-17.5) POC Hct 47 % % (40-51) POC Sodium 143 mEq/L mEq/L (135-145) POC Potassium 3.9 mEq/L mEq/L (3.3-5.0) POC Chloride 106 mEq/L mEq/L (97-110) POC BUN 15 mg/dL mg/dL (7-23) POC Creatinine 0.8 mg/dL mg/dL (0.7-1.3) POC Glucose 115 mg/dL H mg/dL (70-100) Point of Care Test Results: Chemistry 06/08/18 10:13 POC Sodium 143 mEq/L mEq/L (135-145) POC Potassium 3.9 mEq/L mEq/L (3.3-5.0) POC Chloride 106 mEq/L mEq/L (97-110) POC BUN 15 mg/dL mg/dL (7-23) POC Creatinine 0.8 mg/dL mg/dL (0.7-1.3) POC Glucose 115 mg/dL H mg/dL (70-100) ISTAT H&H 06/08/18 10:13 POC Hgb 16.0 gm/dL gm/dL (13.7-17.5) POC Hct 47 % % (40-51) Departure - Departure Disposition: Home, Routine, Self-Care Clinical Impression: Visual disturbance Condition: Good Instructions: Visual Floaters (ED) Additional Instructions: 1. Please follow up with your speech language specialist this week regarding your Emergency Department visit. 2. Return to the emergency department for any worsening of condition including difficulty seeing, headache, and changes in vision. Referrals: Edson Pinon MD [Primary Care Provider] - As per Instructions Curt Santo MD [Medical Doctor] - As per Instructions Report Scribed for: Jj Mckeon Report Scribed by: Marietta Issa Date of Report: 06/08/18 Time of Report: 10:18
[2018-06-08] MEDS ORDERED: IOPAMIDOL (ISOVUE 370) 100 ML BTL IV ONE (10:30)
[2018-06-08 12:00] VITALS: BP 131/81
== END 2018-06-08 11:55 | disposition home or self-care (01) ==
DX: H53.8 Other visual disturbances (principal); Z79.01 Long term (current) use of anticoagulants
CPT/HCPCS: 82435-PO; 82565-PO; 82947-PO; 84132-PO; 84295-PO; 84520-PO; 85014-ER; Q9967